=== PATIENT | male | born 1950 | race Caucasian/White ===

== ENCOUNTER 2016-08-18 12:26 | Emergency (ER) | payer OTHER, MEDICARE ==
[~2016-08-18] VITALS: Ht 167.6 cm; Wt 98.7 kg
[2016-08-18 13:41] LABS: HEMATOCRIT 42.9 % (38.0-50.0); MCH 30.1 PG (29.0-34.0); MCHC 33.8 G/DL (30.0-36.0); MCV 89.2 FL (86-99); PLATELET COUNT 196 K/uL (156-360); RBC DIS.WIDTH-CV 13.3 % (11.8-14.6); RBC DIS.WIDTH-SD 42.9 % (39-53); RED BLOOD COUNT 4.81 M/uL (4.00-5.50); WHITE BLOOD COUNT 10.6 K/uL (4.1-10.2)
[2016-08-18 13:50] LABS: CHLORIDE 105 mEq/L (99-109); POTASSIUM 4.2 mEq/L (3.7-5.4); SODIUM 141 mEq/L (136-147)
[2016-08-18 13:52] LABS: GLUCOSE 276 mg/dL (70-99)
[2016-08-18 13:53] LABS: ANION GAP 12 MEQ/L (2-14)
[2016-08-18 13:56] LABS: GFR ESTIMATE (CALCULATED) > 59 mL/min/; UREA NITROGEN (BUN) 16 mg/dL (9-23)
[2016-08-18 13:58] LABS: ADD MIUA? YES; BILIRUBIN NEGATIVE; BLOOD LARGE; COLOR YELLOW ((YELLOW)); GLUCOSE (STRIP) >=500; KETONES 5; LEUKOCYTES NEGATIVE; NITRITE NEGATIVE; PROTEIN (STRIP) 30; SPECIFIC GRAVITY 1.021 (1.000-1.030); UROBILINOGEN 0.2 MG/DL (0.2-1.0)
[2016-08-18 14:07] LABS: BACTERIA NONE SEEN /HPF; EPITHELIAL CELLS NONE SEEN /HPF; MUCUS TRACE /LPF; RED BLOOD CELLS TNTC /HPF (0-5); UCUL ADDED? NO; WHITE BLOOD CELLS 0-5 /HPF (0-5)
[2016-08-18 14:52] LABS: TOTAL BILIRUBIN 0.5 mg/dL (0.0-1.0)
[2016-08-18 14:53] LABS: ALKALINE PHOSPHATASE 90 IU/L (3-129)
[2016-08-18 14:55] LABS: DIRECT BILIRUBIN 0.2 mg/dL (0.0-0.3)
[2016-08-18 14:56] LABS: LIPASE 58 U/L (1.0-51.0)
[2016-08-18] MEDS ORDERED: MOTRIN800 MG PO (16:29)
[2016-08-18] MEDS ORDERED: ZOFRAN ODT4 MG PO (16:29)
[2016-08-18] MEDS ORDERED: NORCO 7.5/321 TABLET PO (16:29)
[2016-08-18 16:58] VITALS: BP 131/59
== END 2016-08-18 16:58 | disposition home or self-care (01) ==
LOC: EME 12:26
DX: N23 Unspecified renal colic (principal); R31.9 Hematuria, unspecified; R11.2 Nausea with vomiting, unspecified; R19.7 Diarrhea, unspecified
CPT/HCPCS: 74176; 80048; 80076; 81003; 83690; 85027; 87086; 99281; 99284